=== PATIENT | female | born 1950 | race Caucasian/White ===

== ENCOUNTER 2017-11-14 10:02 | Emergency (ER) | payer OTHER ==
[~2017-11-14] VITALS: Ht 157.5 cm; Wt 81.7 kg
[2017-11-14] MEDS ORDERED: FENOFIBRATE160 MG PO (10:13)
[2017-11-14] MEDS ORDERED: DIOVAN 80 MG TA80 M1 PO (10:13)
[2017-11-14] MEDS ORDERED: ATORVASTATIN CA40 MG PO (10:13)
[2017-11-14] MEDS ORDERED: MOBIC15 MG PO (10:14)
[2017-11-14] MEDS ORDERED: METFORMIN HCL500 MG PO (10:14)
[2017-11-14] MEDS ORDERED: NORVASC10 MG PO (10:14)
[2017-11-14] MEDS ORDERED: SYNTHROID150 MCG PO (10:14)
[2017-11-14] MEDS ORDERED: FLONASE 0.05%50 MCG NASAL (11:15)
[2017-11-14 11:29] VITALS: BP 154/80
== END 2017-11-14 11:30 | disposition home or self-care (01) ==
LOC: M.ERS 10:02
DX: J30.9 Allergic rhinitis, unspecified (principal); J00 Acute nasopharyngitis [common cold]